=== PATIENT | female | born 1985 | race Caucasian/White ===

== ENCOUNTER → 2016-07-17 | Emergency (ER) | payer MEDICAID ==
[~2016-07-17] VITALS: Ht 149.9 cm; Wt 61.4 kg
[~2016-07-17] MED LIST: ATIVAN 0.50.5 MG/TAB PO; DILANTIN 100MG100 MG PO; FYCOMPA2 MG PO; LYRICA 100MG C100 M1 PO; LYRICA 50MG CAP50 MG PO; ONFI 10MG PO; VALIUM 5MG T5 MG/TAB PO; ZITHROMAX TRI-500 MG PO; ZONEGRAN 100MG100 MG PO
[2016-07-17 10:54] VITALS: TEMP 98.8
[2016-07-17 12:56] LABS: BASO % 0.4 % (0.0-2.0); EOS # 0.2 (0.0-0.7); EOS % 2.8 % (0-4.0); GRAN # 4.6 (1.4-6.5); GRAN % 58.9 % (42.2-75.2); HEMOGLOBIN 12.8 g/dl (12.5-16.0); LYMPH # 2.6 (1.2-3.4); LYMPH % 33.6 % (20.0-51.0); MEAN CELL VOLUME 89 fl (80.0-100.0); MEAN CORPUSCULAR HEMOGLOBIN 29 pg (27.0-31.0); MEAN CORPUSCULAR HGB CONC 33 g/dl (33.0-37.0); MONO # 0.3 (0.1-0.6); MONO % 4.2 % (1.7-9.3); PLATELET COUNT 237 K/mm3 (130-400); RED BLOOD COUNT 4.37 M/mm3 (4.10-5.30); WHITE BLOOD COUNT 7.9 K/mm3 (4.8-10.8)
[2016-07-17 13:18] LABS: ADJUSTED CALCIUM 9.3 mg/dL (8.4-10.2); BILIRUBIN,TOTAL 0.6 mg/dL (0.0-1.0); CALCIUM 9.3 mg/dL (8.4-10.2); CREATININE, serum 0.63 mg/dL (0.52-1.25)
[2016-07-17 13:35] LABS: PROLACTIN 9.5 ng/mL (3.0-18.6)
[2016-07-17 13:54] VITALS: BP 104/65; PULSE 60
== END | disposition home or self-care (01) ==
LOC: COL.ER 10:48
PROVIDERS: Physician Assistant Medical
DX: R56.9 Unspecified convulsions (principal)

== ENCOUNTER 2017-04-23 06:07 | Emergency (ER) | payer MEDICAID ==
[~2017-04-23] VITALS: Ht 149.9 cm; Wt 57.7 kg
[2017-04-23 06:10] VITALS: TEMP 98.7
[2017-04-23] MEDS ORDERED: DILANTIN 50MG C50 MG PO (06:32)
[2017-04-23] MEDS ORDERED: ATIVAN 0.50.5 MG/TAB PO (06:32)
[2017-04-23 06:52] LABS: HEMOGLOBIN 12.8 g/dl (12.5-16.0); MEAN CELL VOLUME 90 fl (80.0-100.0); MEAN CORPUSCULAR HEMOGLOBIN 30 pg (27.0-31.0); MEAN CORPUSCULAR HGB CONC 34 g/dl (33.0-37.0); MEAN PLATELET VOLUME 9.9 fl (7.4-10.4); PLATELET COUNT 168 K/mm3 (130-400); RED BLOOD COUNT 4.21 M/mm3 (4.10-5.30); WHITE BLOOD COUNT 6.5 K/mm3 (4.8-10.8)
[2017-04-23 06:54] LABS: ADD PATHOLOGY DIFF REVIEW NO
[2017-04-23 07:25] LABS: PROLACTIN 14.7 ng/mL (3.0-18.6)
[2017-04-23 07:43] LABS: ADJUSTED CALCIUM 9.1 mg/dL (8.4-10.2); ALANINE AMINOTRANSFERASE 27 U/L (9-52); ALKALINE PHOSPHATASE 67 U/L (50-136); ANION GAP 8 mmol/L (7-16); BILIRUBIN,TOTAL 0.3 mg/dL (0.0-1.0); BLOOD UREA NITROGEN 10 mg/dL (7-17); CALCIUM 9.1 mg/dL (8.4-10.2); CARBON DIOXIDE 25 mmol/L (22-30); CHLORIDE 105 mmol/L (98-107); GLUCOSE 94 mg/dL (74-106); POTASSIUM 3.8 mmol/L (3.4-5.0); SODIUM 139 mmol/L (137-145); TOTAL PROTEIN 6.8 gm/dL (6.4-8.2)
[2017-04-23 07:54] LABS: BAND 25 % (0-10); EOSINOPHIL 4 % (0-4); LYMPHOCYTE 40 % (20.0-51.0); METAMYELOCYTE 1 % (0-0); NEUTROPHILS 28 % (42.0-75.2); PLATELET ESTIMATE NORMAL (NORMAL); TOTAL CELLS COUNTED 100
[2017-04-23 07:56] LABS: TOXIC GRANULATION PRESENT
[2017-04-23 08:32] VITALS: BP 106/61
[2017-04-23 09:03] VITALS: PULSE 62
== END 2017-04-23 09:03 | disposition home or self-care (01) ==
LOC: COL.ER 06:07
PROVIDERS: Emergency Medicine
DX: G40.909 Epilepsy, unspecified, not intractable, without status epilepticus (principal); F17.210 Nicotine dependence, cigarettes, uncomplicated; Z98.890 Other specified postprocedural states
CPT/HCPCS: J2060; J7030

== ENCOUNTER 2019-05-07 01:04 | Emergency (ER) | payer MEDICAID ==
[~2019-05-07] VITALS: Ht 149.9 cm; Wt 61.4 kg
[~2019-05-07 01:04] MED LIST changes: +DILANTIN 50MG C50 MG PO
[2019-05-07 01:18] VITALS: TEMP 98.4
[2019-05-07] MEDS ORDERED: DILANTIN 100MG100 MG PO (01:26)
[2019-05-07] MEDS ORDERED: DILANTIN KAPSEA30 MG PO (01:27)
[2019-05-07 01:33] LABS: BASO % 0.3 % (0.0-2.0); EOS # 0.2 (0.0-0.7); EOS % 1.8 % (0-4.0); GRAN # 7.3 (1.4-6.5); GRAN % 69.3 % (42.2-75.2); HEMATOCRIT 39.8 % (37.0-47.0); LYMPH # 2.3 (1.2-3.4); LYMPH % 22.2 % (20.0-51.0); MEAN CELL VOLUME 93 fl (80.0-100.0); MEAN CORPUSCULAR HEMOGLOBIN 30 pg (27.0-31.0); MEAN CORPUSCULAR HGB CONC 33 g/dl (33.0-37.0); MEAN PLATELET VOLUME 9.4 fl (7.4-10.4); MONO # 0.6 (0.1-0.6); MONO % 6.1 % (1.7-9.3); PLATELET COUNT 218 K/mm3 (130-400); REDCELL DISTRIBUTION WIDTH-CV 13.3 % (11.5-14.5)
[2019-05-07 01:46] LABS: ALBUMIN 4.1 gm/dL (3.5-5.0); BILIRUBIN,TOTAL 0.1 mg/dL (0.0-1.0); CALCIUM 8.9 mg/dL (8.4-10.2); CREATININE, serum 0.56 (0.52-1.25); POTASSIUM 4.1 mmol/L (3.4-5.0)
[2019-05-07 02:02] LABS: PROLACTIN 8.8 ng/mL (3.0-18.6)
[2019-05-07 02:40] LABS: COLLECTION METHOD CLEAN CATCH
[2019-05-07 02:59] LABS: AMORPHOUS CRYSTAL Present /uL; MUCOUS Present /lpf; PH 6 (5-8); SQUAMOUS EPITHELIAL 0-2 /hpf; URINE APPEARANCE Cloudy; URINE BACTERIA Rare /hpf; URINE BILIRUBIN Negative (NEGATIVE); URINE BLOOD 3+ (NEGATIVE); URINE COLOR Yellow; URINE GLUCOSE Negative (NEGATIVE); URINE KETONE Negative (NEGATIVE); URINE LEUKOCYTE ESTERASE Negative (NEGATIVE); URINE NITRATE Negative (NEGATIVE); URINE PROTEIN(semi-quant) Negative (NEGATIVE)
[2019-05-07] MEDS ORDERED: CEPHALEXIN500 M1 PO (03:55)
[2019-05-07 03:56] VITALS: BP 87/49; PULSE 76
== END 2019-05-07 03:56 | disposition home or self-care (01) ==
LOC: COL.ER 01:04
PROVIDERS: Emergency Medicine
DX: R56.9 Unspecified convulsions (principal); N39.0 Urinary tract infection, site not specified; F17.210 Nicotine dependence, cigarettes, uncomplicated; Z98.890 Other specified postprocedural states
CPT/HCPCS: J2060; J7030

== ENCOUNTER 2019-07-14 15:39 | Emergency (ER) | payer MEDICAID ==
[~2019-07-14] VITALS: Ht 149.9 cm; Wt 61.4 kg
[~2019-07-14 15:39] MED LIST changes: +CEPHALEXIN500 M1 PO; +DILANTIN KAPSEA30 MG PO
[2019-07-14 16:01] VITALS: BP 100/57; TEMP 99.3
[2019-07-14] MEDS ORDERED: DILANTIN 100MG100 MG PO (17:21)
[2019-07-14 17:50] LABS: BASO # 0.1 (0.0-0.2); BASO % 0.6 % (0.0-2.0); EOS # 0.2 (0.0-0.7); EOS % 1.7 % (0-4.0); GRAN # 5.7 (1.4-6.5); GRAN % 63.2 % (42.2-75.2); HEMOGLOBIN 12.9 g/dl (12.5-16.0); LYMPH # 2.6 (1.2-3.4); LYMPH % 28.5 % (20.0-51.0); MEAN CELL VOLUME 92 fl (80.0-100.0); MEAN CORPUSCULAR HEMOGLOBIN 31 pg (27.0-31.0); MEAN CORPUSCULAR HGB CONC 33 g/dl (33.0-37.0); MEAN PLATELET VOLUME 10.1 fl (7.4-10.4); MONO # 0.5 (0.1-0.6); MONO % 5.8 % (1.7-9.3); PLATELET COUNT 207 K/mm3 (130-400); RED BLOOD COUNT 4.23 M/mm3 (4.10-5.30); REDCELL DISTRIBUTION WIDTH-CV 12.7 % (11.5-14.5)
[2019-07-14 18:01] LABS: ALANINE AMINOTRANSFERASE 18 U/L (9-52); ALBUMIN 4.1 gm/dL (3.5-5.0); ALKALINE PHOSPHATASE 77 U/L (50-136); ANION GAP 6 mmol/L (7-16); AST,SGOT 21 U/L (15-37); BILIRUBIN,TOTAL 0.2 mg/dL (0.0-1.0); BLOOD UREA NITROGEN 10 mg/dL (7-17); CARBON DIOXIDE 27 mmol/L (22-30); CHLORIDE 108 mmol/L (98-107); CREATININE, serum 0.53 (0.52-1.25); GLUCOSE 105 mg/dL (74-106); SODIUM 141 mmol/L (137-145); TOTAL PROTEIN 6.9 gm/dL (6.4-8.2)
[2019-07-14 18:08] LABS: ALCOHOL(ethanol),MEDICAL < 10 mg/dL
[2019-07-14 18:17] LABS: PROLACTIN 9.2 ng/mL (3.0-18.6)
[2019-07-14 18:34] LABS: PHENYTOIN (DILANTIN) < 3.0 ug/mL (10.0-20.0)
[2019-07-14 18:58] LABS: TRICYCLIC ANTIDEPRESS URINE NEGATIVE
[2019-07-14 19:52] VITALS: PULSE 79
== END 2019-07-14 19:52 | disposition home or self-care (01) ==
LOC: COL.ER 15:39
PROVIDERS: Nurse Practitioner
DX: G40.909 Epilepsy, unspecified, not intractable, without status epilepticus (principal); F17.210 Nicotine dependence, cigarettes, uncomplicated
CPT/HCPCS: J2060; Q2009

== ENCOUNTER 2020-03-05 16:52 | Emergency (ER) | payer MEDICAID ==
[~2020-03-05] VITALS: Ht 149.9 cm; Wt 61.8 kg
[2020-03-05 17:05] VITALS: TEMP 98.1
[2020-03-05 18:01] LABS: BASO % 0.4 % (0.0-2.0); EOS # 0.2 (0.0-0.7); EOS % 1.9 % (0-4.0); GRAN # 4.2 (1.4-6.5); GRAN % 50.6 % (42.2-75.2); HEMOGLOBIN 11.9 g/dl (12.5-16.0); LYMPH # 3.3 (1.2-3.4); LYMPH % 39.6 % (20.0-51.0); MEAN CELL VOLUME 93 fl (80.0-100.0); MEAN CORPUSCULAR HEMOGLOBIN 31 pg (27.0-31.0); MEAN CORPUSCULAR HGB CONC 33 g/dl (33.0-37.0); MEAN PLATELET VOLUME 9.8 fl (7.4-10.4); MONO # 0.6 (0.1-0.6); MONO % 7.1 % (1.7-9.3); PLATELET COUNT 278 K/mm3 (130-400); RED BLOOD COUNT 3.87 M/mm3 (4.10-5.30); REDCELL DISTRIBUTION WIDTH-CV 13.2 % (11.5-14.5)
[2020-03-05 18:03] LABS: HEMATOCRIT 35.9 % (37.0-47.0)
[2020-03-05 18:19] LABS: ALANINE AMINOTRANSFERASE 13 U/L (4-34); ALBUMIN 4.1 gm/dL (3.5-5.0); ALKALINE PHOSPHATASE 85 U/L (50-136); ANION GAP 6 mmol/L (7-16); AST,SGOT 21 U/L (15-37); BILIRUBIN,TOTAL 0.2 mg/dL (0.0-1.0); BLOOD UREA NITROGEN 8 mg/dL (7-17); CALCIUM 9.2 mg/dL (8.4-10.2); CARBON DIOXIDE 31 mmol/L (22-30); CHLORIDE 104 mmol/L (98-107); CREATININE, serum 0.51 (0.52-1.25); GLUCOSE 92 mg/dL (74-106); SODIUM 142 mmol/L (137-145)
[2020-03-05 18:25] LABS: ALCOHOL(ethanol),MEDICAL < 10 mg/dL
[2020-03-05 18:36] LABS: PROLACTIN 10.9 ng/mL (3.0-18.6)
[2020-03-05 19:44] LABS: COLLECTION METHOD CLEAN CATCH
[2020-03-05] MEDS ORDERED: PHENYTEK300 MG PO (19:48)
[2020-03-05 20:10] LABS: AMORPHOUS CRYSTAL Present /uL; PH 6 (5-8); SQUAMOUS EPITHELIAL 0-2 /hpf; URINE APPEARANCE Cloudy; URINE BACTERIA Rare /hpf; URINE BILIRUBIN Negative (NEGATIVE); URINE BLOOD Negative (NEGATIVE); URINE COLOR Yellow; URINE GLUCOSE Negative (NEGATIVE); URINE KETONE Negative (NEGATIVE); URINE LEUKOCYTE ESTERASE Negative (NEGATIVE); URINE NITRATE Negative (NEGATIVE); URINE PROTEIN(semi-quant) Negative (NEGATIVE); URINE RBC 0-2 /hpf; URINE UROBILINOGEN Negative (NEGATIVE)
[2020-03-05 20:55] VITALS: BP 98/73; PULSE 62
== END 2020-03-05 20:55 | disposition home or self-care (01) ==
LOC: COL.ER 16:52
PROVIDERS: Emergency Medicine
DX: G40.909 Epilepsy, unspecified, not intractable, without status epilepticus (principal)
CPT/HCPCS: J2060; J7030; Q2009

== ENCOUNTER 2020-10-12 12:47 | Emergency (ER) | payer MEDICAID ==
[~2020-10-12] VITALS: Ht 149.9 cm; Wt 61.5 kg
[~2020-10-12 12:47] MED LIST changes: +PHENYTEK300 MG PO
[2020-10-12 12:58] VITALS: TEMP 98.7
[2020-10-12] MEDS ORDERED: PAMELOR 25MG25 MG PO (13:07)
[2020-10-12 13:32] LABS: BASO % 0.4 % (0.0-2.0); EOS # 0.1 (0.0-0.7); EOS % 0.9 % (0-4.0); GRAN # 4.7 (1.4-6.5); GRAN % 62.3 % (42.2-75.2); HEMATOCRIT 39.6 % (37.0-47.0); HEMOGLOBIN 13.2 g/dl (12.5-16.0); LYMPH # 2.2 (1.2-3.4); LYMPH % 28.4 % (20.0-51.0); MEAN CELL VOLUME 89 fl (80.0-100.0); MEAN CORPUSCULAR HEMOGLOBIN 30 pg (27.0-31.0); MEAN CORPUSCULAR HGB CONC 33 g/dl (33.0-37.0); MEAN PLATELET VOLUME 9.4 fl (7.4-10.4); MONO # 0.6 (0.1-0.6); MONO % 7.7 % (1.7-9.3); PLATELET COUNT 226 K/mm3 (130-400); RED BLOOD COUNT 4.44 M/mm3 (4.10-5.30); REDCELL DISTRIBUTION WIDTH-CV 13.4 % (11.5-14.5)
[2020-10-12 13:47] LABS: ALBUMIN 3.9 gm/dL (3.5-5.0); BILIRUBIN,TOTAL 0.1 mg/dL (0.0-1.0); C-REACTIVE PROTEIN 2.1 mg/dL (0.0-0.9); CALCIUM 8.9 mg/dL (8.4-10.2); CREATININE, serum 0.5 (0.52-1.25); POTASSIUM 3.7 mmol/L (3.4-5.0); TOTAL PROTEIN 6.9 gm/dL (6.4-8.2)
[2020-10-12 13:59] LABS: PROLACTIN 13.7 ng/mL (3.0-18.6)
[2020-10-12 14:52] VITALS: BP 104/73; PULSE 82
== END 2020-10-12 14:52 | disposition home or self-care (01) ==
LOC: COL.ER 12:47
PROVIDERS: Family Medicine
DX: G40.909 Epilepsy, unspecified, not intractable, without status epilepticus (principal); R89.2 Abnormal level of other drugs, medicaments and biological substances in specimens from other organs, systems and tissues; F17.210 Nicotine dependence, cigarettes, uncomplicated; Z88.8 Allergy status to other drugs, medicaments and biological substances